=== PATIENT | female | born 1985 | race Caucasian/White ===

== ENCOUNTER 2016-11-25 21:08 | Emergency (ER) | payer OTHER ==
[2016-11-26 00:25] VITALS: BP 114/81
== END 2016-11-26 00:25 | disposition home or self-care (01) ==
LOC: ED 21:08
DX: H60.93 Unspecified otitis externa, bilateral (principal)

== ENCOUNTER 2018-03-21 21:24 | Emergency (ER) | payer OTHER ==
[2018-03-21 22:03] VITALS: BP 110/69
== END 2018-03-21 22:03 | disposition home or self-care (01) ==
LOC: ED 21:24
DX: T16.2XXA Foreign body in left ear, initial encounter (principal); X58.XXXA Exposure to other specified factors, initial encounter; Y93.89 Activity, other specified; Y92.89 Other specified places as the place of occurrence of the external cause; Y99.8 Other external cause status

== ENCOUNTER 2018-06-09 22:34 | Emergency (ER) | payer OTHER ==
[~2018-06-09] VITALS: Ht 149.9 cm; Wt 91.6 kg
[2018-06-09 22:41] VITALS: Ht 149.9 cm; Wt 91.6 kg
[2018-06-10 00:08] VITALS: BP 110/57
== END 2018-06-10 00:07 | disposition home or self-care (01) ==
LOC: ED 22:34
DX: G89.29 Other chronic pain (principal); M54.5 Low back pain
CPT/HCPCS: J1885